=== PATIENT | female | born 1970 | race Caucasian/White ===

== ENCOUNTER 2017-01-20 12:17 | Emergency (ER) | payer OTHER ==
--- NOTE | ~2017-01-20 | US67 ---
[facility] A Service of [facility] RADIOLOGY TEXT RESULTS PATIENT: JUSTIN CHAVARRIA LOCATION: [facility] : 72 UNIT #: [id number] AGE: [address]: Duong Ulola MD SEX: F ORDER DR: [id number] [facility] [address] [place], [place] [address] [id number] E MR#: [id number] Acc #: [id number] NAME: JUSTIN CHAVARRIA : 1970 SEX: F STUDY DATE/TIME: 01/20/2017 14:30 UNIT: [facility] ROOM: STUDY DESCRIPTION: Gallbladder Attending Physician: Duong Ulloa M.D. Ordering Physician: Duong Ulloa M.D. Primary Care Physician: Primary Care Physician No MEDICAL IMAGING REPORT This report is preliminary unless electronic signature is present EXAM Gallbladder ultrasound INDICATIONS Epigastric pain for 2 years, which is worsening. FINDINGS The pancreas appears normal. The IVC is patent. The liver is normal in appearance and size. The portal vein shows flow in the liver. The right kidney is 9.8 cm in length and appears normal. The gallbladder is adequately distended and appears normal. Common bile duct is 3 mm in diameter. IMPRESSION Normal gallbladder ultrasound. Dictated by... Matt Puente M.D. THIS IS AN ELECTRONICALLY VERIFIED REPORT Matt Puente M.D. at 01/21/2017 7:05 AM FEL/psc TD: 01/20/2017 20:16 JOB #: [id number] MEDICAL IMAGING REPORT Page 1 of 1 COPY
--- NOTE | ~2017-01-20 | CR2 ---
[facility] A Service of [facility] RADIOLOGY TEXT RESULTS PATIENT: JUSTIN CHAVARRIA LOCATION: [facility] : 72 UNIT #: [id number] AGE: [address]: Duong Ulloa MD SEX: F ORDER DR: [id number] [facility] [address] [place], [place] [address] [id number] E MR#: [id number] Acc #: [id number] NAME: JUSTIN CHAVARRIA : 1970 SEX: F STUDY DATE/TIME: 01/20/2017 1308 UNIT: [facility] ROOM: STUDY DESCRIPTION: CR Abdomen Acute Series Attending Physician: Duong Ulloa M.D. Ordering Physician: Duong Ulloa M.D. Primary Care Physician: No Primary Care Physician MEDICAL IMAGING REPORT This report is preliminary unless electronic signature is present EXAM Acute abdomen series 01/20/2017 1308 hours HISTORY 47-year-old woman with 3-4 day history of fatigue, constipation, headache and shortness of air. COMPARISON CT abdomen 03/05/2010 FINDINGS Upright chest film demonstrates normal cardiac, mediastinal and hilar contours. The lungs are clear. There are no effusions. No free air seen in the abdomen. Supine and upright views of the abdomen demonstrate a nonspecific bowel gas pattern without definite obstruction or dilatation of bowel. There is a single mildly dilated loop of small bowel in the left mid abdomen to diameter 3.4 cm which is abnormal. This does however appear more normal on the upright film. No suspicious calcifications are seen. There are bilateral pelvic phleboliths. IMPRESSION 1. No acute findings in the chest. 2. No bowel obstructions seen. Bowel gas pattern is nonspecific. There is a gas-filled mildly dilated loop of small bowel in the left mid abdomen measuring 3.4 cm, which has a normal appearance on the upright film and is of doubtful clinical significance. 3. Bilateral pelvic phleboliths. No suspicious calcifications. Dictated by... Magda Helton M.D. [facility] A Service of [facility] RADIOLOGY TEXT RESULTS PATIENT: JUSTIN CHAVARRIA LOCATION: [facility] : 72 UNIT #: [id number] AGE: [address]: Duong Ulloa MD SEX: F ORDER DR: THIS IS AN ELECTRONICALLY VERIFIED REPORT Magda Helton M.D. at 01/21/2017 9:26 AM [place] TD: 01/20/2017 17:07 JOB #: [id number] MEDICAL IMAGING REPORT Page 1 of 1 COPY
[~2017-01-20 12:17] MED LIST: AUGMENTIN PO; AUGMENTIN400 MG PO; BACTRIM DS TABL1 TA1 PO; CLEOCIN PO; EFFEXOR XR PO; LEVOTHROID125 MCG PO; PERCOCET 51 UDTAB 5/ DOB; SYNTHROID112 MCG PO
[2017-01-20 13:02] LABS: URINE SOURCE CLEAN CATCH
[2017-01-20 13:07] LABS: BASOPHIL% 0.7 % (0-2.5); EOSINOPHIL% 0.2 % (0.0-7.0); HEMATOCRIT 42.4 % (35.0-45.0); HEMOGLOBIN 14.3 gm/dL (12.0-16.0); LYMPHOCYTE# 1.8 X10e3 (1.0-3.5); LYMPHOCYTE% 31.9 % (17.0-45.0); MEAN CELL VOLUME 96.3 FL (83-96); MEAN CORPUSCULAR HEMOGLOBIN 32.5 PG (28-34); MEAN CORPUSCULAR HGB CONC 33.7 g/dL (30-36); MEAN PLATELET VOLUME 7.3 FL (6.5-11.5); MONOCYTE# 0.4 X10e3 (0-1.0); MONOCYTE% 6.7 % (3.0-12.0); NEUTROPHIL# 3.4 X10e3 (1.5-7.1); NEUTROPHIL% 60.5 % (40-75); PLATELET COUNT 285 X10e3 (140-420); RED CELL DISTRIBUTION WIDTH 16.3 % (11.0-15.5); WHITE BLOOD COUNT 5.7 X10e3 (4.0-10.5)
[2017-01-20 13:09] LABS: DIFF IND NO
[2017-01-20 13:09] LABS: URINE APPEARANCE CLOUDY; URINE BLOOD NEG (NEG); URINE COLOR DK YELLOW; URINE GLUCOSE NEG (NEG); URINE KETONE TRACE (NEG); URINE LEUKOCYTE ESTERASE TRACE (NEG); URINE NITRATE NEG (NEG); URINE PROTEIN 1+ (NEG); URINE SPECIFIC GRAVITY 1.031 (1.003-1.035)
[2017-01-20 13:13] LABS: CULTURE INDICATED? YES; URINE BACTERIA AUWI NEG (NEGATIVE); URINE SQUAMOUS EPITHELIAL CELL MOD /[HPF]
[2017-01-20 13:30] LABS: URINE MUCUS PRESENT
[2017-01-20 13:33] LABS: ALBUMIN SERUM 5.5 g/dL (3.5-5.0); BILIRUBIN, DIRECT 0.3 mg/dL (0.0-0.2); BILIRUBIN,INDIRECT 1.8 mg/dL (0.0-0.9); BILIRUBIN,TOTAL 2.1 mg/dL (0.2-2.0); BUN/CREATININE RATIO 7.33; CALCIUM SERUM 9.5 mg/dL (8.4-10.2); CREATININE SERUM 1.5 mg/dL (0.6-1.4); GLOM FILT RATE Estimated 41.4 mL/min (>60); POTASSIUM 3.2 mmol/L (3.5-5.1); PROTEIN TOTAL SERUM 8.6 g/dL (6.0-8.3)
== END 2017-01-20 16:16 | disposition home or self-care (01) ==
LOC: CED 12:17
PROVIDERS: Emergency Medicine
DX: K59.00 Constipation, unspecified (principal); E03.9 Hypothyroidism, unspecified
CPT/HCPCS: 36415; 74022; 76705; 80048; 80076; 81003; 82150; 83690; 84443; 84703; 85025; 87086; 99284